=== PATIENT | female | born 1990 | race Caucasian/White ===

== ENCOUNTER 2021-02-13 11:32 | Emergency (ER) | payer MEDICAID, OTHER, SELFPAY ==
[~2021-02-13] VITALS: Ht 154.9 cm; Wt 75.6 kg
[2021-02-13 11:57] VITALS: BP 117/60
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
== END 2021-02-13 12:36 | disposition home or self-care (01) ==
LOC: ED 12:35
DX: K02.9 Dental caries, unspecified (principal); K08.89 Other specified disorders of teeth and supporting structures; F17.210 Nicotine dependence, cigarettes, uncomplicated
CPT/HCPCS: 99406